=== PATIENT | female | born 1975 | race Caucasian/White ===

== ENCOUNTER → 2023-05-15 | Outpatient (CLI) | payer BC ==
[2023-05-15 11:35] LABS: Basophils # (A) 0.03 X 10*3/uL (0.00-0.10); Basophils % (A) 0.6 %; Eosinophils # (A) 0.15 X 10*3/uL (0.04-0.35); Eosinophils % (A) 2.9 %; HCT 39.5 % (37.2-46.3); HGB 13.4 g/dL (12.0-15.0); Lymphocytes # (A) 1.62 X 10*3/uL (0.90-5.00); MCH 29.1 pg (27.0-32.0); MCHC 33.9 g/dL (32.0-37.0); MCV 85.7 FL (80.0-97.0); Mean Platelet Volume 10.1 FL (9.5-12.2); Monocytes # (A) 0.54 X 10*3/uL (0.20-1.00); Monocytes % (A) 10.3 %; NRBC Per 100 WBC 0 X 10*3/uL (0.00-0.01); Neutrophils # (A) 2.86 X 10*3/uL (1.80-7.70); Neutrophils % (A) 54.8 %; Platelet Count 260 X 10*3/uL (140-440); RBC 4.61 X 10*6/uL (4.10-5.20); RDW 12.4 % (11.5-14.5); WBC 5.22 X 10*3/uL (4.50-10.00)
[2023-05-15 12:09] LABS: Blood Urea Nitrogen 8.1 mg/dL (9.0-27.0); Chol/HDL Ratio 4.81 Ratio; LDL Cholesterol,Calculated 130.8 mg/dL (0.0-131.0)
== END | disposition home or self-care (01) ==
LOC: LABPAT 07:59
PROVIDERS: ATTEND Student in an Organized Health Care Education/Training Program
DX: Z01.812 Encounter for preprocedural laboratory examination (principal); R06.02 Shortness of breath
CPT/HCPCS: 36415; 80061; 82565; 83036; 84443; 84520; 85025

== ENCOUNTER 2023-05-17 10:08 | Day surgery (SDC) | payer BC ==
[~2023-05-17 10:08] MED LIST: ALPRAZolam 0.25 MG TAB PO PRN; ALPRAZolam 0.5 MG TAB PO PRN; NITROGLYCERIN SL TABS 0.4 MG TAB SUBLINGUAL PRN
[2023-05-17] MEDS: SODIUM CHLORIDE 0.9% 1,000 ML in EMPTY BAG 1 BAG IV SCH (10:31)
[2023-05-17] MEDS: ASPIRIN 325 MG TAB PO STA (10:31)
[2023-05-17 10:39] VITALS: RESP 16; TEMP 98.5
[2023-05-17] MEDS: SODIUM CHLORIDE 0.9% 1,000 ML IV ONE (10:42)
[2023-05-17 10:55] LABS: African American GFR (CKD) >90 (>60 ml/min/1.73 sqM); Anion Gap 6 mmol/L; Blood Urea Nitrogen 8 mg/dL (7-17); Calcium 8.7 mg/dL (8.4-10.2); Carbon Dioxide 26 mmol/L (22-30); Chloride 106 mmol/L (98-107); Glucose 94 mg/dL (74-99); Non-African American GFR(CKD) >90 (>60 ml/min/1.73 sqM); Potassium 3.8 mmol/L (3.5-5.1); Sodium 138 mmol/L (137-145)
[2023-05-17] MEDS ORDERED: VERAPAMIL 2.5 MG/ML 2 ML AMP ONE (11:45)
[2023-05-17] MEDS ORDERED: LIDOCAINE 1% INJ 10MG/ML (20 ML MDV) ONE (11:45)
[2023-05-17] MEDS ORDERED: fentaNYL (PF) 50 MCG/ML 2 ML AMP ONE (11:58)
[2023-05-17] MEDS ORDERED: HEPARIN SODIUM 1,000 UN/ML (10ML VL) ONE (11:58)
[2023-05-17] MEDS: MIDAZOLAM 2 MG/2 ML VIAL IVP ONE (12:19)
[2023-05-17] MEDS: fentaNYL (PF) 50 MCG/ML 2 ML AMP IVP ONE (12:19)
[2023-05-17] MEDS: LIDOCAINE 1% INJ 10MG/ML (20 ML MDV) SQ ONE (12:21)
[2023-05-17] MEDS: VERAPAMIL SYRINGE (5 MG/10 ML) INTRAARTER ONE (12:25)
[2023-05-17] MEDS: HEPARIN SODIUM 1,000 UN/ML (10ML VL) IV ONE (12:30)
[2023-05-17] MEDS: IOPAMIDOL-370 100ML BTL INJ ONE (13:05)
[2023-05-17 14:34] VITALS: PULSE 66
[2023-05-17 15:40] VITALS: BP 100/60
--- NOTE | 2023-05-17 17:15 | P.CARDCATH ---
Date of Procedure: 05/17/23 Description of Procedure: DIAGNOSTIC CORONARY ANGIOGRAPHY and LEFT HEART CATH REPORT PROCEDURES PERFORMED: Left heart catheterization Selective coronary angiography Moderate conscious sedation 30 mins [Ultrasound assisted] Right radial access INDICATION: Dyspnea on exertion and hypertrophy of obstructive cardiomyopathy 47-year-old presented to outpatient cardiology clinic because of new onset dyspnea on exertion when she was in a hiking trip in [place]. On examination she had a systolic murmur which got exaggerated with Valsalva maneuver. She had an echocardiogram which was concerning of dynamic LVOT obstruction. On provocative echocardiogram with Valsalva her peak gradients were reaching up to 100 mmHg in LVOT. For this she was started on metoprolol 100 mg. Patient reported minimal response to metoprolol therapy and continued to have dyspnea on exertion and instances of lightheadedness. For this she was planned to undergo a cardiac catheterization. CONSENT: I have explained the procedural steps of above-mentioned procedures in layman's terms to the patient. I discussed the risks (including but not limited to stroke, emergent vascular or cardiac surgery or ), benefits and alternative therapies for the above-mentioned procedure. I discussed the risks of sedation/analgesia and blood product administration (if indicated). The patient has indicated understanding and acceptance of these risks. Conscious Sedation: Patient's ECG, heart rate, blood pressure, pulse oximetry were monitored throughout the duration of procedure under my direct supervision. 1 mg Versed and 25 mg Fentanyl were used for induction of moderate conscious sedation. Total duration of moderate concious sedation 30 minutes. PROCEDURE: After explaining the risks, benefits and alternatives of the above mentioned procedures in detail to the patient, informed consent was obtained. Patient was taken to the catheterization lab, prepped and draped in usual sterile fashion using universal precuations. Barbow and blake test were performed to confirm adequate perfusion to fingers. Ultrasound was used to identify the radial artery. 1% lidocaine was infiltrated over the right radial artery. A 6-Irish sheath was placed and secured in the right radial artery using modified Seldinger technique. The sheath was flushed and 5 mg verapamil was administered intra-arterially. J tipped wire was advanced under fluoroscopic guidance. Once the wire tip reached aortic root 5500 units of IV heparin was given. Over the wire JR4 diagnostic catheter was advanced. The wire in place the catheter was manipulated to cross the aortic valve and entered into LV under fluoroscopy guidance. The wire was removed and the catheter was flushed. LV pressures were obtained and pullback was performed under fluoroscopy. Catheter was manipulated to selectively engage the right coronary ostium. Right coronary angiography was performed in different angiographic projections. The JR4 diagnostic catheter was exchanged for a JL 4 diagnostic catheter over the J-wire. The wire was removed, catheter was flushed and manipulated under fluoroscopy to selectively engaged the left coronary ostium. Left coronary angioplasty was performed in different angiographic projections. This catheter was exchanged for a 6 Irish Berlin double-lumen catheter to obtain simultaneous pressures and aortic root and left ventricle. With the help of the J-wire the Oleksandr catheter was prolapsed across the aortic valve to enter the left ventricle. The wire was removed and the Oleksandr catheter was flushed. Simultaneous pressures were obtained and pullback was performed. Catheter was removed over the wire. Radial sheath was flushed. The right radial sheath was removed and a TR band was placed with excellent patent hemostasis was achieved. The patient tolerated the procedure well. Patient was transported back to the post catheterization holding area in stable condition. Angiographic images were reviewed in detail. HEMODYNAMICS: Aortic Pressure: 102/65 mmHg. Deep LV cavity pressures 180/5 mmHg. LVEDP 20 mmHg. Distal LVOT systolic 80 mmHg Proximal LVOT systolic 100 mmHg LVOT waveforms were bifid, and had delayed diastolic drop in pressure suggestive of dynamic LVOT obstruction. Simultaneous pressure obtained through Berlin catheter showed LV pressure 140/23 Aortic pressure 100/60 mmHg To peak gradient was 40 mmHg at resting state SELECTIVE CORONARY ARTERIOGRAPHY: LEFT MAIN: The left main is very short. It bifurcates into the LAD and circumflex. LEFT ANTERIOR DESCENDING CORONARY ARTERY: LAD is a large caliber vessel which wraps around to the apex. Proximal LAD appears angiographically normal. It gives rise to small to small caliber diagonal branch which appears angiographically normal. Mid LAD appears angiographically normal. It has a segment of myocardial bridge. Mid LAD gives rise to a medium caliber diagonal branch which appears angiographically normal. LAD gives rise to a small caliber septal branch. Distal LAD appears angiographically normal and wraps around the apex. LEFT CIRCUMFLEX CORONARY ARTERY: It is nondominant vessel. Left circumflex is a moderate caliber vessel. It appears angiographically normal. It gives rise to 2 small caliber OM branches. LCx continues to form the third OM branch which is a large caliber and appears angiographically normal. RIGHT CORONARY ARTERY: Dominant vessel. The right coronary artery is a large caliber vessel which gives PDA and PLV branch. It appears angiographically normal. IMPRESSION: Angiographically normal coronary arteries as described above. 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 PLAN: Continue metoprolol. Follow-up in outpatient clinic to get evaluated for mavacamten therapy. 150 cc fluids for 3 hours Discharge home in 3 hours Follow-up in the office in 1-2 weeks. Performing Physician Ferdinand Oh MD, FACC, RPVI Thank you for allowing [facility] to participate in this patient's care. Feel free to reach out in case of any followup questions.
== END 2023-05-17 16:10 | disposition home or self-care (01) ==
LOC: CATHCVL 10:08
PROVIDERS: ATTEND Student in an Organized Health Care Education/Training Program
DX: I25.10 Atherosclerotic heart disease of native coronary artery without angina pectoris (principal); Z82.49 Family history of ischemic heart disease and other diseases of the circulatory system; Z79.899 Other long term (current) drug therapy
CPT/HCPCS: 93458; 76937; 80048; C1769 ×2; C1894; J2250; J2001; J3010; J1644; Q9967

== ENCOUNTER → 2024-06-13 | Outpatient (CLI) | payer BC ==
[2024-06-14 06:23] LABS: HCT 44.2 % (37.2-46.3); HGB 14.5 g/dL (12.0-15.0); MCH 29.1 pg (27.0-32.0); MCHC 32.8 g/dL (32.0-37.0); MCV 88.6 FL (80.0-97.0); Mean Platelet Volume 9.8 FL (9.5-12.2); NRBC Per 100 WBC 0 X 10*3/uL (0.00-0.01); Platelet Count 290 X 10*3/uL (140-440); RBC 4.99 X 10*6/uL (4.10-5.20); RDW 12.3 % (11.5-14.5); WBC 6.15 X 10*3/uL (4.50-10.00)
[2024-06-14 12:31] LABS: LDL Cholesterol,Calculated 146.3 mg/dL (0.0-131.0)
[2024-06-14 13:11] LABS: ALT 20 U/L (8-44); AST 23 U/L (13-35); Albumin 4.2 g/dL (3.8-4.9); Albumin/Globulin Ratio 1.91 Ratio (1.60-3.17); Alkaline Phosphatase 57 U/L (41-126); BUN/Creat Ratio 12.71 Ratio (12.00-20.00); Blood Urea Nitrogen 8.9 mg/dL (9.0-27.0); Carbon Dioxide 24.2 mmol/L (21.6-31.8); Chloride 128 mmol/L (96-109); Globulin 2.2 g/dL (1.6-3.3); Glucose 92 mg/dL (70-110); Potassium 4.6 mmol/L (3.5-5.5); Total Bilirubin 0.5 mg/dL (0.3-1.2); Total Protein 6.4 g/dL (6.2-8.2)
[2024-06-14 13:32] LABS: NT-Pro-B-Type Natriuretic Pept 54 pg/mL (0-125)
[2024-06-15 10:19] LABS: Anion Gap -14.2 mmol/L (4.00-12.00); Sodium 138 mmol/L (135-145)
== END | disposition home or self-care (01) ==
LOC: LABWHC1 10:42
PROVIDERS: ATTEND Student in an Organized Health Care Education/Training Program
DX: Z13.6 Encounter for screening for cardiovascular disorders (principal); I50.9 Heart failure, unspecified; D72.9 Disorder of white blood cells, unspecified; E11.9 Type 2 diabetes mellitus without complications; E78.5 Hyperlipidemia, unspecified; E03.9 Hypothyroidism, unspecified; R79.89 Other specified abnormal findings of blood chemistry
CPT/HCPCS: 36415; 80053; 80061; 83036; 83880; 84443; 85027; 86141

== ENCOUNTER → 2024-06-15 | Outpatient (CLI) | payer SELFPAY ==
[2024-06-15 11:12] LABS: BUN/Creat Ratio 10.86 Ratio (12.00-20.00); Blood Urea Nitrogen 7.6 mg/dL (9.0-27.0); Carbon Dioxide 26.7 mmol/L (21.6-31.8); Chloride 105 mmol/L (96-109); Glucose 96 mg/dL (70-110); Potassium 4.5 mmol/L (3.5-5.5); Sodium 139 mmol/L (135-145)
== END | disposition home or self-care (01) ==
LOC: LABWHC1 07:31
PROVIDERS: ATTEND Student in an Organized Health Care Education/Training Program
DX: E87.1 Hypo-osmolality and hyponatremia (principal)
CPT/HCPCS: 36415; 80048